=== PATIENT | female | born 1990 | race Caucasian/White ===

== ENCOUNTER 2016-06-24 08:40 | Emergency (ER) | payer OTHER ==
[~2016-06-24] VITALS: Ht 167.6 cm; Wt 75.1 kg
[~2016-06-24 08:40] MED LIST: ACET-1256 PO; AMT25 PO; EFF/375 PO; HYDR50CA2 PO; TRAM-10 PO; TRAZ100T29 PO
[2016-06-24 08:42] VITALS: TEMP 36.8; Ht 167.6 cm; Wt 75.1 kg
[2016-06-24] MEDS ORDERED: CYCLOBENZAPRINE HCL 5 MG TAB PO STA (09:01)
[2016-06-24] MEDS ORDERED: OXYCODONE HCL IR 5 MG TAB (IMMEDIATE RELEASE) PO STA (09:01)
[2016-06-24] MEDS ORDERED: CYCLOBENZAPRINE HCL 10 MG TAB ONE (09:20)
[2016-06-24 09:46] LABS: BASO % 0.6 %; BASO ABS # 0.04 K/uL (0-0.2); COMPLETE YES; EOS % 2.1 %; HEMATOCRIT 43.8 % (37-47); IG% 0.2 %; LYMPH % 38.9 %; MEAN CELL VOLUME 87.3 fL (80-100); MEAN CORPUSCULAR HEMOGLOBIN 29.5 pg (25-34); MEAN CORPUSCULAR HGB CONC 33.8 g/dl (32-36); MONO % 7.5 %; NEUT % 50.7 %; PLATELET COUNT 219 K/uL (130-400); RED BLOOD COUNT 5.02 M/uL (4.2-5.4); WHITE BLOOD COUNT 6.17 K/uL (4.8-10.8)
--- NOTE | 2016-06-24 10:01 | DIAGNOSTIC IMAGING REPORT ---
KUB CLINICAL HISTORY: Left flank pain. COMPARISON STUDY: CT of the abdomen and pelvis January 04, 2016. FINDINGS: There are cholecystectomy clips. A 4 mm left pelvic calcification was shown to represent a phlebolith on prior CT. Bowel gas pattern is normal. Rib series will be reported separately. No renal calculi are identified by radiography. IMPRESSION: 1. No evidence for a bowel obstruction. 2. No urinary calculi identified. Electronically signed by: Brayan Hernandez M.D. 06/24/2016 10:00 AM Dictated Date/Time: 06/24/2016 9:58 AM
--- NOTE | 2016-06-24 10:01 | DIAGNOSTIC IMAGING REPORT ---
PA CHEST WITH LEFT-SIDED RIB SERIES CLINICAL HISTORY: Left-sided chest wall pain. No trauma. FINDINGS: A PA chest radiograph with 3 additional views from a left-sided rib series is compared to study dated 05/16/2016. The cardiomediastinal silhouette is unremarkable. The lungs and pleural spaces are clear. No pneumothorax is seen. There is no radiographic evidence of acute/distracted left-sided rib fracture on the rib series. The remainder of the bony thorax is grossly intact. Cholecystectomy clips are seen in the right upper quadrant. IMPRESSION: 1. No active disease in the chest. 2. Unremarkable left-sided rib series. Electronically signed by: Armando Hemphill M.D. 06/24/2016 9:59 AM Dictated Date/Time: 06/24/2016 9:57 AM
[2016-06-24 10:03] LABS: BUN/CREATININE RATIO 10.9 (10-20); CREATININE 0.84 mg/dl (0.60-1.20); POTASSIUM 3.9 mmol/L (3.5-5.1)
[2016-06-24 10:08] LABS: ALB/GLOB RATIO 1.3 (0.9-2); CKMB/CK RATIO 0.9 (0-3.0)
[2016-06-24 10:14] LABS: URINE APPEARANCE CLEAR (CLEAR); URINE BILIRUBIN NEG (NEG); URINE COLOR YELLOW; URINE NITRITE NEG (NEG); URINE PH 6.5 (4.5-7.5); URINE SPECIFIC GRAVITY 1.008 (1.000-1.030); UROBILINOGEN NEG (NEG); ZZUR CULT IF INDIC CLEAN CATCH NO
[2016-06-24 10:15] LABS: MANUAL MICROSCOPIC REQUIRED? NO; REVIEW REQ? NO
[2016-06-24] MEDS ORDERED: OXYC1TAB3 PO (11:05)
--- NOTE | 2016-06-24 11:07 | EMERGENCY ROOM VISIT NOTE ---
History First contact with patient: 08:50 Chief Complaint: BACK PAIN Stated Complaint: PULLED BACK/SIDE MUSCLE History of Present Illness The patient is a 26 year old female who presents to the Emergency Room via private vehicle with complaints of "pulled back/side muscle". Patient states that about 4 days ago, on Thursday morning when she woke up she went to fruit or nut picker her small child out of the crib and then she noticed a pulling sensation in the left mid back. She took Tylenol Thursday and Thursday and felt the same through Thursday. She states she feels like a muscle in the left posterior rib cage is pulled and it hurts in that region to breathe and with twisting motion side to side. She denies any history of blood clots, recent leg swelling, chest pain, shortness of breath, fevers, chills, control, history of kidney stones. She does smoke. Pain is rated as an 8/10. No cauda equina symptoms. Review of Systems A complete 10-point Review of Systems was discussed with the patient, with pertinent positives and negatives listed in the History of Present Illness. All remaining Review of Systems questions can be considered negative unless otherwise specified. Past Medical/Surgical History Medical Problems: (1) Cholelithiasis Nos (2) Hypothyroidism Nos (3) PROM (premature rupture of membranes) Family History Cancer Social History Smoking Status: Current Every Day Smoker Alcohol Use: none Drug Use: none Marital Status: single Occupation Status: student Current/Historical Medications Scheduled Acetaminophen (Tylenol), 1,000 MG PO Q4H Amitriptyline HCl (Amitriptyline HCl), 25 MG PO DAILY Trazodone Hcl (Trazodone), 100 MG PO BID Scheduled PRN Oxycodone Ir (Roxicodone Ir), 1-2 TAB PO Q4H PRN for Pain Allergies Coded Allergies: Cephalexin (Unverified Allergy, Intermediate, VOMITING/DIARRHEA, 06/24/16) Physical Exam Vital Signs Date Time Temp Pulse Resp B/P Pulse Ox O2 Delivery O2 Flow Rate FiO2 06/24/16 11:30 84 15 115/66 99 06/24/16 10:31 84 16 97/64 98 Room Air 06/24/16 08:42 36.8 97 16 124/77 99 Room Air Physical Exam VITAL SIGNS - Vital signs and nursing notes were reviewed. Afebrile, normotensive, non-tachycardic and is saturating well on room air at 99%. GENERAL -26-year-old female appearing her stated age who is in no acute distress. Patient is nontoxic in appearance. Communicates well with provider and answers questions appropriately. SKIN - Without rashes. HEAD - NC/AT. EYES - Sclera anicteric. Palpebral conjunctiva pink and moist with no injection noted. EARS - No deformities of external structures noted on gross examination bilaterally. NOSE - Midline and without cyanosis. No epistaxis or purulent drainage noted. MOUTH/OROPHARYNX - Without perioral cyanosis. NECK - Neck with FROM. Supple to palpation. No lymphadenopathy noted. No nuchal rigidity. LUNGS - Chest wall symmetric without accessory muscle use, intercostals retractions, or central cyanosis. Normal vesicular breath sounds CTA B/L. No wheezes, rales, or rhonchi appreciated. CARDIAC - RRR with S1/S2. No murmur, rubs, or gallops appreciated. ABDOMEN - Abdominal contour no without pulsations or visible masses. BS normoactive all four quadrants. No tenderness, palpable masses, hepatosplenomegaly, or ascites noted. EXTREMITIES - No clubbing or peripheral cyanosis. No pretibial edema present. + 5/5 strength noted in UE/LE bilaterally. MUSCULOSKELETAL: There is increased discomfort with palpation of the left lateral thoracic paraspinous musculature. No CVA tenderness. NEUROLOGIC - Cranial nerves II through XII grossly intact. Sensory intact to light touch throughout. Patellar reflexes +2/4. PSYCH - A&Ox3 and cooperates fully with examiner. Medical Decision & Procedures ER Provider Diagnostic Interpretation: KUB CLINICAL HISTORY: Left flank pain. COMPARISON STUDY: CT of the abdomen and pelvis January 04, 2016. FINDINGS: There are cholecystectomy clips. A 4 mm left pelvic calcification was shown to represent a phlebolith on prior CT. Bowel gas pattern is normal. Rib series will be reported separately. No renal calculi are identified by radiography. IMPRESSION: 1. No evidence for a bowel obstruction. 2. No urinary calculi identified. Electronically signed by: Brayan Hernandez M.D. 06/24/2016 10:00 AM Dictated Date/Time: 06/24/2016 9:58 AM PA CHEST WITH LEFT-SIDED RIB SERIES CLINICAL HISTORY: Left-sided chest wall pain. No trauma. FINDINGS: A PA chest radiograph with 3 additional views from a left-sided rib series is compared to study dated 05/16/2016. The cardiomediastinal silhouette is unremarkable. The lungs and pleural spaces are clear. No pneumothorax is seen. There is no radiographic evidence of acute/distracted left-sided rib fracture on the rib series. The remainder of the bony thorax is grossly intact. Cholecystectomy clips are seen in the right upper quadrant. IMPRESSION: 1. No active disease in the chest. 2. Unremarkable left-sided rib series. Electronically signed by: Armando Hemphill M.D. 06/24/2016 9:59 AM Dictated Date/Time: 06/24/2016 9:57 AM Laboratory Results 06/24/16 09:20 Red Blood Count 5.02, Mean Corpuscular Volume 87.3, Mean Corpuscular Hemoglobin 29.5, Mean Corpuscular Hemoglobin Concent 33.8, Mean Platelet Volume 11.0, Neutrophils (%) (Auto) 50.7, Lymphocytes (%) (Auto) 38.9, Monocytes (%) (Auto) 7.5, Eosinophils (%) (Auto) 2.1, Basophils (%) (Auto) 0.6, Neutrophils # (Auto) 3.13, Lymphocytes # (Auto) 2.40, Monocytes # (Auto) 0.46, Eosinophils # (Auto) 0.13, Basophils # (Auto) 0.04 06/24/16 09:20 Test 06/24/16 09:20 06/24/16 10:00 White Blood Count 6.17 K/uL (4.8-10.8) Red Blood Count 5.02 M/uL (4.2-5.4) Hemoglobin 14.8 g/dL (12.0-16.0) Hematocrit 43.8 % (37-47) Mean Corpuscular Volume 87.3 fL (80-100) Mean Corpuscular Hemoglobin 29.5 pg (25-34) Mean Corpuscular Hemoglobin Concent 33.8 g/dl (32-36) Platelet Count 219 K/uL (130-400) Mean Platelet Volume 11.0 fL (7.4-10.4) Neutrophils (%) (Auto) 50.7 % Lymphocytes (%) (Auto) 38.9 % Monocytes (%) (Auto) 7.5 % Eosinophils (%) (Auto) 2.1 % Basophils (%) (Auto) 0.6 % Neutrophils # (Auto) 3.13 K/uL (1.4-6.5) Lymphocytes # (Auto) 2.40 K/uL (1.2-3.4) Monocytes # (Auto) 0.46 K/uL (0.11-0.59) Eosinophils # (Auto) 0.13 K/uL (0-0.5) Basophils # (Auto) 0.04 K/uL (0-0.2) RDW Standard Deviation 40.4 fL (36.4-46.3) RDW Coefficient of Variation 12.6 % (11.5-14.5) Immature Granulocyte % (Auto) 0.2 % Immature Granulocyte # (Auto) 0.01 K/uL (0.00-0.02) Anion Gap 7.0 mmol/L (3-11) Est Creatinine Clear Calc Drug Dose 106.0 ml/min Estimated GFR () 112.0 Estimated GFR (Non- 96.6 BUN/Creatinine Ratio 10.9 (10-20) Calcium Level 9.0 mg/dl (8.5-10.1) Total Bilirubin 0.2 mg/dl (0.2-1) Aspartate Amino Transf (AST/SGOT) 8 U/L (15-37) Alanine Aminotransferase (ALT/SGPT) 18 U/L (12-78) Alkaline Phosphatase 71 U/L (45-117) Total Creatine Kinase 68 U/L (26-192) Creatine Kinase MB 0.6 ng/ml (0.5-3.6) Creatine Kinase MB Ratio 0.9 (0-3.0) Total Protein 7.4 gm/dl (6.4-8.2) Albumin 4.2 gm/dl (3.4-5.0) Globulin 3.2 gm/dl (2.5-4.0) Albumin/Globulin Ratio 1.3 (0.9-2) Urine Color YELLOW Urine Appearance CLEAR (CLEAR) Urine pH 6.5 (4.5-7.5) Urine Specific [place] 1.008 (1.000-1.030) Urine Protein NEG (NEG) Urine Glucose (UA) NEG (NEG) Urine Ketones NEG (NEG) Urine Occult Blood NEG (NEG) Urine Nitrite NEG (NEG) Urine Bilirubin NEG (NEG) Urine Urobilinogen NEG (NEG) Urine Leukocyte Esterase NEG (NEG) Urine Test NEG (NEG) Medications Administered Medications (Trade) Dose Ordered Sig/Robert Route Start Time Stop Time Status Last Admin Dose Admin Oxycodone HCl (Roxicodone Immediate Rel Tab) 5 mg NOW STAT PO 06/24/16 09:01 06/24/16 09:05 DC 06/24/16 09:25 5 MG Cyclobenzaprine HCl (Flexeril Tab) 10 mg STK-MED ONCE .ROUTE 06/24/16 09:20 06/24/16 09:22 DC 06/24/16 09:26 5 MG Medical Decision Patient was seen and evaluated as above. After obtaining a thorough history and physical examination IV access was obtained and the above workup was completed. Radiographs were obtained of the kidneys, ureter and bladder as well as a rib unilateral with PA chest. Patient had a CTA of the chest performed just over 1 month ago for pulmonary embolism suspicion, a CT of the abdomen and pelvis was performed in December of this past year. She is presenting with near reproducible pain in the left paraspinous musculature that is worse with movement. She is not tachycardic and is saturating well on room air. Only risk factor for PE is smoking. Because she had a CT of the chest performed to evaluate for PE just over 1 month ago for chest pain or shortness of breath which she is not experiencing today and a negative result I do not feel that the benefit of obtaining this outweighs the risk of radiation and this was thoroughly discussed with the patient and it was decided to not obtain a CT scan of the chest. Results of the radiograph as above. Negative findings. The other concern was for potential stone but in the absence of finding on previous CT that was performed in December, and negative radiograph today as well as negative urine I do not feel that this is likely. She is most likely experiencing a lumbar strain. CBC reveals no leukocytosis or anemia. Electrolytes are within normal limits. No evidence of rhabdomyolysis as CPK is normal. AST is slightly low at 8. Urine was unremarkable. Urine negative. Patient was offered additional testing but it was decided to forego the CT of the abdomen and pelvis and chest. For pain here she was given 1 OxyIR tablet and one Flexeril tablet. I do find it reasonable to prescribe her a short-term prescription for home of the OxyIR. I do not feel comfortable prescribing her the Flexeril with her other chronic medications. She is to follow-up with her family doctor regarding today's visit and return for any worsening of her symptoms. She was educated upon today's findings and management. She had questions answered prior to discharge and was discharged home in good condition. In evaluation treatment of this patient the following differential diagnoses were entertained: Lumbar strain, sprain, fracture, kidney stone, pyelonephritis , pulmonary embolism, among others. [place] Drug Monitoring Program Search Results: patient reviewed within database, no issues identified Impression Primary Impression: Back strain Departure Information Dispostion Home / Self-Care Condition GOOD Prescriptions Oxycodone Ir (Roxicodone Ir) 5 Mg Tab 1-2 TAB PO Q4H Y for Pain, #15 TAB For Initial Treatment Prov: Matthew Gill PA-C 06/24/16 Referrals Funmi Odonnell M.D. (PCP) Patient Instructions My [facility] Additional Instructions You have been treated in the Emergency Department for Back Pain. You have received pain medicine in the emergency department which impairs your ability to operate a vehicle. It is illegal for you to drive after receiving these medicines. You have been prescribed Oxy IR to be used for pain control. This is a narcotic medication. You cannot drive or consume alcohol while on this medicine. This medicine should only be used for pain that cannot be controlled with over-the- counter pain medicines. As we discussed, at this time we decided not to obtain a CT scan of your chest, abdomen or pelvis. Please return with any worsening of your symptoms. For pain control, you can use the following [id number] medicines (if >12 yo): - Regular strength (325mg/tab) Tylenol (acetaminophen) 2 tabs every 4-6 hours as needed. Do not exceed 12 tablets in a 24 hour period. Avoid taking more than 4 grams (4000 mg) of Tylenol per day. This includes any other sources of acetaminophen you may take on a regular basis. - Regular strength (200 mg/tab) Advil (ibuprofen) 1-2 tabs every 4-6 hours as needed. Do not exceed a dose of 3200 mg per day. If this is an acute injury, ice can be applied to the area of pain for the first 3 days to help decrease pain and inflammation. After the first 3 days, a heating pad can be used over the area for continued soothing relief. You should schedule a follow-up appointment in 2-3 days with your Primary Care Provider for further evaluation and treatment of your back pain. Return to the Emergency Department if your current symptoms worsen despite treatment course outlined above, or if you develop any of the following symptoms : intractable pain despite aforementioned treatment course, loss of control of your bowel or bladder, numbness or tingling in your groin, or development of a fever. Please return to the emergency department with any new/concerning symptoms. Problem Qualifiers Primary Impression: Back strain Encounter type: initial encounter Qualified Codes: S39.012A - Strain of muscle, fascia and tendon of lower back, initial encounter
[2016-06-24 11:30] VITALS: BP 115/66; PULSE 84; O2SAT 99
== END 2016-06-24 11:32 | disposition home or self-care (01) ==
LOC: C.EDB 08:41
DX: S39.012A Strain of muscle, fascia and tendon of lower back, initial encounter (principal); X58.XXXA Exposure to other specified factors, initial encounter; E03.9 Hypothyroidism, unspecified; F17.200 Nicotine dependence, unspecified, uncomplicated; Z79.899 Other long term (current) drug therapy; Z80.9 Family history of malignant neoplasm, unspecified; Z88.8 Allergy status to other drugs, medicaments and biological substances

== ENCOUNTER 2016-09-28 15:52 | Emergency (ER) | payer OTHER ==
[~2016-09-28] VITALS: Ht 167.6 cm; Wt 69.4 kg
[~2016-09-28 15:52] MED LIST changes: -EFF/375 PO; -HYDR50CA2 PO; +OXYC1TAB3 PO; -TRAM-10 PO
[2016-09-28 15:57] VITALS: Ht 167.6 cm; Wt 69.4 kg
[2016-09-28] MEDS ORDERED: KETOROLAC TROMETHAMINE 30 MG/ML VIAL IV STA (16:35)
[2016-09-28] MEDS ORDERED: LORAZEPAM 2 MG/ML 1 ML VIAL IV STA (16:35)
--- NOTE | 2016-09-28 16:40 | EMERGENCY ROOM VISIT NOTE ---
History Report prepared by Abdullahi: Khadra Trujillo Under the Supervision of: Swetha Jean.O. First contact with patient: 16:01 Chief Complaint: SHORTNESS OF BREATH Stated Complaint: SOB,HEART BEATING HARD,NAUSEA,DIZZY Nursing Triage Summary: Pt became short of breath about 3 hours ago. Pt stated that yesterday she was having heart palpitations all day and this scared her. Pt stated she had a sudden onset of SOB and that her hands and feet feel numb. Pt said that she does have a history of anxiety. History of Present Illness The patient is a 26 year old female who presents to the Emergency Room with complaints of intermittent heart palpitations for the past two days. She states that she has had palpitations in the past, but over the past two days she has been having more than usual. Over the past 3 hours her symptoms have worsened. She has started feeling short of breath and reports chest tightness. The patient is also experiencing nausea, fatigue, and tingling in her hands, face, and legs. She denies any modifying factors. She has not been sleeping much the past two days. The patient denies vomiting, abdominal pain, diarrhea, hematochezia, melena, urinary symptoms, cough, fevers, and recent illness. She also denies any recent travel, increased stress, and any chance of . No significant cardiac history or history of thyroid problems. She does smoke every day. The patient rates her current pain as a 4/10. Source of History: patient Onset: 2 days ago Position: chest Symptom Intensity: 4/10 Quality: other (palpitations) Timing: intermittent Modifying Factors (Worsening): other (pt denies) Modifying Factors (Relieving): other (pt denies) Associated Symptoms: + SOB, + chest pain (tightness), + fatigue, + nausea, No abdominal pain, No cough, No diarrhea, No fevers, No hematochezia, No melena , No urinary symptoms, No vomiting Note: Pt notes tingling in her hands, face, and legs. Review of Systems See HPI for pertinent positives & negatives. A total of 10 systems reviewed and were otherwise negative. Past Medical & Surgical Medical Problems: (1) Cholelithiasis Nos (2) Hypothyroidism Nos (3) PROM (premature rupture of membranes) Family History Cancer Social History Smoking Status: Current Every Day Smoker Alcohol Use: none Drug Use: none Marital Status: single Occupation Status: student Current/Historical Medications Scheduled Buprenorphine Hcl-Naloxone Hcl (Suboxone 8-2 Mg), 0.25 TAB SL DAILY Lorazepam (Ativan), 0.5 MG PO Q6H Scheduled PRN Trazodone Hcl (Trazodone), 100 MG PO for Pain Allergies Coded Allergies: Cephalexin (Unverified Allergy, Intermediate, VOMITING/DIARRHEA, 09/28/16) Physical Exam Vital Signs Date Time Temp Pulse Resp B/P Pulse Ox O2 Delivery O2 Flow Rate FiO2 09/28/16 20:34 36.5 104 15 136/78 100 09/28/16 19:00 136/78 09/28/16 18:52 104 15 09/28/16 18:31 129/74 09/28/16 18:22 88 21 09/28/16 18:18 67 16 130/77 09/28/16 18:16 130/77 09/28/16 17:52 99 19 100 09/28/16 17:22 87 17 100 09/28/16 16:52 110 29 09/28/16 16:52 91 09/28/16 16:12 100 Room Air 09/28/16 15:57 36.5 98 20 136/81 100 Room Air Physical Exam GENERAL: alert, very anxious appearing, well nourished, tearful, non-toxic EYE EXAM: normal conjunctiva, PERRL and EOM's grossly intact OROPHARYNX: no exudate, no erythema, lips, buccal mucosa, and tongue normal and mucous membranes are moist NECK: supple, no nuchal rigidity, no adenopathy, non-tender LUNGS: Clear to auscultation. Normal chest wall mechanics HEART: Tachycardic but regular, no murmurs, S1 normal and S2 normal ABDOMEN: abdomen soft, non-tender, normo-active bowel sounds, no masses, no rebound or guarding. BACK: Back is symmetrical on inspection and there is no deformity, no midline tenderness, no CVA tenderness. SKIN: no rashes and no bruising UPPER EXTREMITIES: upper extremities are grossly normal. LOWER EXTREMITIES: No pitting edema. NEURO EXAM: Normal sensorium, cranial nerves II-XII grossly intact, normal speech, no gross weakness of arms, no gross weakness of legs. Medical Decision & Procedures ER Provider Diagnostic Interpretation: Radiology results have been interpreted by the radiologist and reviewed by me. CHEST 2 VIEWS ROUTINE HISTORY: Short of breath. COMPARISON: Chest 05/16/2016. FINDINGS: The lungs are clear. Cardiac silhouette is normal in size. No pleural effusions. No pneumothorax. IMPRESSION: No acute process. Electronically signed by: Sulaiman Martinez M.D. 09/28/2016 5:19 PM Dictated Date/Time: 09/28/2016 5:18 PM CHEST CTA for PULMONARY ARTERIES CT DOSE: 241.78 mGy.cm HISTORY: Short of breath. Elevated d-dimer. TECHNIQUE: Multiaxial CT images of the chest were performed following the intravenous administration of contrast to evaluate the pulmonary arteries. Maximal intensity projection images were also obtained. COMPARISON STUDY: Chest CTA 05/16/2016. FINDINGS: There is a normal caliber thoracic aorta with no evidence for dissection. There is no evidence for pulmonary embolus. No pleural effusions. No pneumothorax. The liver and spleen are unremarkable. No mediastinal or hilar lymphadenopathy. The central airways are patent. The lungs are clear. Cholecystectomy. IMPRESSION: No evidence for pulmonary embolus. Electronically signed by: Sulaiman Martinez M.D. 09/28/2016 7:46 PM Dictated Date/Time: 09/28/2016 7:41 PM Laboratory Results 09/28/16 16:50 Red Blood Count 4.92, Mean Corpuscular Volume 82.9, Mean Corpuscular Hemoglobin 29.9, Mean Corpuscular Hemoglobin Concent 36.0, Mean Platelet Volume 10.6, Neutrophils (%) (Auto) 56.2, Lymphocytes (%) (Auto) 37.2, Monocytes (%) (Auto) 4.8, Eosinophils (%) (Auto) 1.3, Basophils (%) (Auto) 0.3, Neutrophils # (Auto) 3.36, Lymphocytes # (Auto) 2.23, Monocytes # (Auto) 0.29, Eosinophils # (Auto) 0.08, Basophils # (Auto) 0.02 09/28/16 16:50 Test 09/28/16 16:50 White Blood Count 5.99 K/uL (4.8-10.8) Red Blood Count 4.92 M/uL (4.2-5.4) Hemoglobin 14.7 g/dL (12.0-16.0) Hematocrit 40.8 % (37-47) Mean Corpuscular Volume 82.9 fL (80-100) Mean Corpuscular Hemoglobin 29.9 pg (25-34) Mean Corpuscular Hemoglobin Concent 36.0 g/dl (32-36) Platelet Count 259 K/uL (130-400) Mean Platelet Volume 10.6 fL (7.4-10.4) Neutrophils (%) (Auto) 56.2 % Lymphocytes (%) (Auto) 37.2 % Monocytes (%) (Auto) 4.8 % Eosinophils (%) (Auto) 1.3 % Basophils (%) (Auto) 0.3 % Neutrophils # (Auto) 3.36 K/uL (1.4-6.5) Lymphocytes # (Auto) 2.23 K/uL (1.2-3.4) Monocytes # (Auto) 0.29 K/uL (0.11-0.59) Eosinophils # (Auto) 0.08 K/uL (0-0.5) Basophils # (Auto) 0.02 K/uL (0-0.2) RDW Standard Deviation 36.3 fL (36.4-46.3) RDW Coefficient of Variation 12.0 % (11.5-14.5) Immature Granulocyte % (Auto) 0.2 % Immature Granulocyte # (Auto) 0.01 K/uL (0.00-0.02) D-Dimer 990 ug/L FEU (0-500) Anion Gap 10.0 mmol/L (3-11) Est Creatinine Clear Calc Drug Dose 80.5 ml/min Estimated GFR () 90.7 Estimated GFR (Non- 78.2 BUN/Creatinine Ratio 13.2 (10-20) Calcium Level 9.7 mg/dl (8.5-10.1) Magnesium Level 2.2 mg/dl (1.8-2.4) Total Bilirubin 0.4 mg/dl (0.2-1) Aspartate Amino Transf (AST/SGOT) 9 U/L (15-37) Alanine Aminotransferase (ALT/SGPT) 16 U/L (12-78) Alkaline Phosphatase 76 U/L (45-117) Troponin I < 0.015 ng/ml (0-0.045) Total Protein 7.8 gm/dl (6.4-8.2) Albumin 4.5 gm/dl (3.4-5.0) Globulin 3.3 gm/dl (2.5-4.0) Albumin/Globulin Ratio 1.4 (0.9-2) Thyroid Stimulating Hormone (TSH) 0.946 uIu/ml (0.300-4.500) Laboratory results per my review. Medications Administered Medications (Trade) Dose Ordered Sig/Robert Route Start Time Stop Time Status Last Admin Dose Admin Lorazepam (Ativan Inj) 0.5 mg NOW STAT IV 09/28/16 16:35 09/28/16 16:38 DC 09/28/16 16:58 0.5 MG Ketorolac Tromethamine (Toradol Inj) 30 mg NOW STAT IV 09/28/16 16:35 09/28/16 16:38 DC 09/28/16 16:58 30 MG Cyclobenzaprine HCl (Flexeril Tab) 10 mg NOW STAT PO 09/28/16 17:51 09/28/16 17:52 DC 09/28/16 18:17 10 MG Acetaminophen (Tylenol Tab) 650 mg NOW STAT PO 09/28/16 17:51 09/28/16 17:52 DC 09/28/16 18:17 650 MG Albuterol (Ventolin Hfa Inhaler) 2 puffs NOW ONCE INH 09/28/16 18:00 09/28/16 18:01 DC 09/28/16 18:17 2 PUFFS ECG Indication: palpitations Rate (beats per minute): 108 Rhythm: sinus tachycardia Findings: T-wave inversion (in leads 3, AVF, V2, V3, V4), no ectopy, other (No evidence for Brugada; No evidence for WPW; No ST elevations; baseline artifact) ED Course 1601: The patient was evaluated in room C9. A complete history and physical exam was performed. 1635: Toradol 30 mg IV, Ativan 0.5 mg IV 1747: I updated the patient. She appears more comfortable but she was tearful with discussion of results and condition. 1751: Tylenol tab 650 mg PO, Flexeril 10 mg PO 1800: Albuterol 2 puffs INH 2015: I reassessed the patient at this time. She is feeling better and resting comfortably. I discussed the results and treatment plan with the patient. I answered all pertaining questions that she had. She expressed understanding and verbalized agreement. The patient will be discharged home. Medical Decision Differential diagnosis includes etiologies such as premature contractions, electrolyte abnormality, cardiac dysrhythmia, thyroid dysfunction, pulmonary embolism, infection, gastrointestinal, as well as others were entertained. Pt well appearing here and likely component of anxiety. Labs reassuring. Elevated d-dimer found after PE cannot be ruled out with perc criteria. CT scan of the chest negative. Patient. Much better here following medication, however still complained of pain. Given persistence of symptoms and negative troponin despite slightly abnormal EKG, doubt ACS. No evidence of tamponade, effusion, infiltrate, dissection, HOCM. EKG changes mild and not diffuse, no recent URI symptoms to suggest pericarditis. No dysrhythmias noted on telemetry during monitoring. No history of GERD/heartburn to suggest GI etiology. No history of ulnar pathology including asthma. Patient responded well to Ativan initially here, however was easily made anxious and tearful with discussion at bedside. Discussed with patient follow-up with her family doctor , symptoms to watch and return for, she verbalized understanding was agreeable with plan. Impression Primary Impression: Dyspnea Additional Impressions: Palpitations Chest pain Anxiety Scribe Attestation The scribe's documentation has been prepared under my direction and personally reviewed by me in its entirety. I confirm that the note above accurately reflects all work, treatment, procedures, and medical decision making performed by me. Departure Information Dispostion Home / Self-Care Referrals Funmi Odonnell M.D. (PCP) Forms HOME CARE DOCUMENTATION FORM, IMPORTANT VISIT INFORMATION Patient Instructions My [facility] Additional Instructions Please follow up with her family doctor regarding her symptoms. If you have any worsening pain, increased trouble breathing, develop fevers, vomiting, dizziness or passing out, you've any other new concerns, please return the emergency room. You may use the inhaler for any wheezing or trouble breathing as needed. Please do not use more than 2 puffs at time and use only up to every 4 hours. If you feel he needed use it more frequently, please return the emergency room. Problem Qualifiers Primary Impression: Dyspnea Dyspnea type: shortness of breath Qualified Codes: R06.02 - Shortness of breath Additional Impressions: Chest pain Chest pain type: unspecified Qualified Codes: R07.9 - Chest pain, unspecified
[2016-09-28] MEDS ORDERED: LORA-741 PO (16:45)
[2016-09-28] MEDS ORDERED: BUPR1SUB23 SL (16:45)
[2016-09-28 17:06] LABS: BASO % 0.3 %; BASO ABS # 0.02 K/uL (0-0.2); COMPLETE YES; EOS % 1.3 %; HEMATOCRIT 40.8 % (37-47); IG% 0.2 %; LYMPH % 37.2 %; LYMPH ABS # 2.23 K/uL (1.2-3.4); MEAN CELL VOLUME 82.9 fL (80-100); MEAN CORPUSCULAR HEMOGLOBIN 29.9 pg (25-34); MEAN PLATELET VOLUME 10.6 fL (7.4-10.4); MONO % 4.8 %; NEUT % 56.2 %; PLATELET COUNT 259 K/uL (130-400); RED BLOOD COUNT 4.92 M/uL (4.2-5.4); WHITE BLOOD COUNT 5.99 K/uL (4.8-10.8)
--- NOTE | 2016-09-28 17:21 | DIAGNOSTIC IMAGING REPORT ---
CHEST 2 VIEWS ROUTINE HISTORY: Short of breath. COMPARISON: Chest 05/16/2016. FINDINGS: The lungs are clear. Cardiac silhouette is normal in size. No pleural effusions. No pneumothorax. IMPRESSION: No acute process. Electronically signed by: Sulaiman Martinez M.D. 09/28/2016 5:19 PM Dictated Date/Time: 09/28/2016 5:18 PM
[2016-09-28 17:25] LABS: ALT/SGPT 16 U/L (12-78); AST/SGOT 9 U/L (15-37); BLOOD UREA NITROGEN 13 mg/dl (7-18); BUN/CREATININE RATIO 13.2 (10-20); CALCIUM 9.7 mg/dl (8.5-10.1); CARBON DIOXIDE 21 mmol/L (21-32); CHLORIDE 111 mmol/L (98-107); GLUCOSE 100 mg/dl (70-99); MAGNESIUM 2.2 mg/dl (1.8-2.4); POTASSIUM 3.6 mmol/L (3.5-5.1); SODIUM 142 mmol/L (136-145)
[2016-09-28 17:36] LABS: ALB/GLOB RATIO 1.4 (0.9-2); ALKALINE PHOSPHATASE 76 U/L (45-117); THYROID STIMULATING HORMONE 0.946 uIu/ml (0.300-4.500)
[2016-09-28] MEDS ORDERED: CYCLOBENZAPRINE HCL 10 MG TAB PO STA (17:51)
[2016-09-28] MEDS ORDERED: ACETAMINOPHEN 325 MG TAB PO STA (17:51)
[2016-09-28] MEDS ORDERED: ALBUTEROL HFA 8 GM INHALER INH ONE (18:00)
[2016-09-28] MEDS ORDERED: OPTIRAY 320 IV PRN (19:00)
--- NOTE | 2016-09-28 19:48 | DIAGNOSTIC IMAGING REPORT ---
CHEST CTA for PULMONARY ARTERIES CT DOSE: 241.78 mGy.cm HISTORY: Short of breath. Elevated d-dimer. TECHNIQUE: Multiaxial CT images of the chest were performed following the intravenous administration of contrast to evaluate the pulmonary arteries. Maximal intensity projection images were also obtained. COMPARISON STUDY: Chest CTA 05/16/2016. FINDINGS: There is a normal caliber thoracic aorta with no evidence for dissection. There is no evidence for pulmonary embolus. No pleural effusions. No pneumothorax. The liver and spleen are unremarkable. No mediastinal or hilar lymphadenopathy. The central airways are patent. The lungs are clear. Cholecystectomy. IMPRESSION: No evidence for pulmonary embolus. Electronically signed by: Sulaiman Martinez M.D. 09/28/2016 7:46 PM Dictated Date/Time: 09/28/2016 7:41 PM
[2016-09-28 20:34] VITALS: BP 136/78; PULSE 104; TEMP 36.5; O2SAT 100
== END 2016-09-28 20:35 | disposition home or self-care (01) ==
LOC: C.EDB 15:53 → C.EDC 20:35
DX: R06.00 Dyspnea, unspecified (principal); R00.2 Palpitations; R07.9 Chest pain, unspecified; F41.9 Anxiety disorder, unspecified; E03.9 Hypothyroidism, unspecified; K80.20 Calculus of gallbladder without cholecystitis without obstruction; F17.200 Nicotine dependence, unspecified, uncomplicated; Z79.899 Other long term (current) drug therapy; Z80.9 Family history of malignant neoplasm, unspecified; Z88.8 Allergy status to other drugs, medicaments and biological substances

== ENCOUNTER 2016-11-24 09:03 | Emergency (ER) | payer OTHER ==
[~2016-11-24] VITALS: Ht 165.1 cm; Wt 67.6 kg
[~2016-11-24 09:03] MED LIST changes: -ACET-1256 PO; -AMT25 PO; +BUPR1SUB23 SL; +LORA-741 PO; -OXYC1TAB3 PO
[2016-11-24 09:06] VITALS: TEMP 37; Ht 165.1 cm; Wt 67.6 kg
[2016-11-24] MEDS ORDERED: SODIUM CHLORIDE 0.9% 1000ML 1,000 ML IV STA (09:25)
--- NOTE | 2016-11-24 09:37 | EMERGENCY ROOM VISIT NOTE ---
History First contact with patient: 09:15 Chief Complaint: SORETHROAT Stated Complaint: SORE THROAT FOR 26 DAYS,FATIGUE History of Present Illness The patient is a 26 year old female who presents to the Emergency Room with complaints of sore throat. The patient states that she has had a sore throat for the last 3 weeks. She states it started with sore throat and she had bilateral eye discharge. She saw her family doctor and was started on eyedrops and the eye discharge improved but the sore throat persisted. She saw her family doctor 3 days ago and was diagnosed with a viral sore throat. She states that the sore throat has significantly worsened. She reports intermittent low-grade fevers. She reports pain with swallowing. She states she is feeling very fatigued. She denies any chest pain or trouble breathing. She denies any urinary symptoms. She denies any abdominal pain or vomiting. Review of Systems A 10 system review of systems was completed with positives and pertinent negatives listed in the HPI. Past Medical/Surgical History Medical Problems: (1) Cholelithiasis Nos (2) Hypothyroidism Nos (3) PROM (premature rupture of membranes) Family History Cancer Social History Smoking Status: Current Every Day Smoker Alcohol Use: none Drug Use: none Marital Status: single Occupation Status: student Current/Historical Medications Scheduled Prednisone (Prednisone), 0 PO DAILY Scheduled PRN Trazodone Hcl (Trazodone), 100 MG PO HS PRN for Sleep Allergies Coded Allergies: Cephalexin (Unverified Allergy, Intermediate, VOMITING/DIARRHEA, 11/24/16) Physical Exam Vital Signs Date Time Temp Pulse Resp B/P (MAP) Pulse Ox O2 Delivery O2 Flow Rate FiO2 11/24/16 11:37 67 17 106/79 98 11/24/16 10:34 65 16 94/48 97 Room Air 11/24/16 09:18 98 Room Air 11/24/16 09:06 37.0 100 20 114/81 96 Room Air Physical Exam VITALS: Vitals are noted on the nurse's note and reviewed by myself. Vital signs stable. The patient is afebrile. GENERAL: This is a 26-year-old female, in no acute distress, nondiaphoretic, well-developed well-nourished. SKIN: The skin was without rashes, erythema, edema, or bruising. There is no tenting of the skin. Capillary reflex less than 2 seconds. HEAD: Normocephalic atraumatic. EARS: External auditory canals clear, tympanic membranes pearly mcguire without erythema or effusion bilaterally. EYES: Pupils equal round and reactive to light and accommodation. Conjunctivae without injection, sclerae without icterus. Extraocular movements intact. NOSE: Patent, turbinates without inflammation or discharge. MOUTH: Mucous membranes moist. Tonsils are not enlarged. Pharynx minimally erythematous without exudate. Uvula midline. Airway patent. Tongue does not deviate. NECK: Supple without nuchal rigidity. No lymphadenopathy. No thyromegaly. Cervical spine is nontender. No JVD. HEART: Regular rate and rhythm without murmurs gallops or rubs. LUNGS: Clear to auscultation bilaterally without wheezes, rales or rhonchi. No retractions or accessory muscle use. ABDOMEN: Positive bowel sounds x 4. Soft, nontender, without masses or organomegaly. MUSCULOSKELETAL: No muscle atrophy, erythema, or edema noted. Full range of motion in all extremities. Normal gait. Strength 5/5 throughout. NEURO: Patient was alert and oriented to person place and time. No focal neurological deficits. Medical Decision & Procedures Laboratory Results 11/24/16 09:50 Red Blood Count 4.75, Mean Corpuscular Volume 85.1, Mean Corpuscular Hemoglobin 28.6, Mean Corpuscular Hemoglobin Concent 33.7, Mean Platelet Volume 10.3, Neutrophils (%) (Auto) 66.4, Lymphocytes (%) (Auto) 25.3, Monocytes (%) (Auto) 5.1, Eosinophils (%) (Auto) 2.7, Basophils (%) (Auto) 0.3, Neutrophils # (Auto) 4.26, Lymphocytes # (Auto) 1.62, Monocytes # (Auto) 0.33, Eosinophils # (Auto) 0.17, Basophils # (Auto) 0.02 11/24/16 09:50 Test 11/24/16 09:50 11/24/16 11:00 White Blood Count 6.41 K/uL (4.8-10.8) Red Blood Count 4.75 M/uL (4.2-5.4) Hemoglobin 13.6 g/dL (12.0-16.0) Hematocrit 40.4 % (37-47) Mean Corpuscular Volume 85.1 fL (80-100) Mean Corpuscular Hemoglobin 28.6 pg (25-34) Mean Corpuscular Hemoglobin Concent 33.7 g/dl (32-36) Platelet Count 240 K/uL (130-400) Mean Platelet Volume 10.3 fL (7.4-10.4) Neutrophils (%) (Auto) 66.4 % Lymphocytes (%) (Auto) 25.3 % Monocytes (%) (Auto) 5.1 % Eosinophils (%) (Auto) 2.7 % Basophils (%) (Auto) 0.3 % Neutrophils # (Auto) 4.26 K/uL (1.4-6.5) Lymphocytes # (Auto) 1.62 K/uL (1.2-3.4) Monocytes # (Auto) 0.33 K/uL (0.11-0.59) Eosinophils # (Auto) 0.17 K/uL (0-0.5) Basophils # (Auto) 0.02 K/uL (0-0.2) RDW Standard Deviation 37.8 fL (36.4-46.3) RDW Coefficient of Variation 12.2 % (11.5-14.5) Immature Granulocyte % (Auto) 0.2 % Immature Granulocyte # (Auto) 0.01 K/uL (0.00-0.02) Anion Gap 8.0 mmol/L (3-11) Est Creatinine Clear Calc Drug Dose 92.1 ml/min Estimated GFR () 112.0 Estimated GFR (Non- 96.6 BUN/Creatinine Ratio 13.5 (10-20) Calcium Level 9.4 mg/dl (8.5-10.1) Total Bilirubin 0.3 mg/dl (0.2-1) Aspartate Amino Transf (AST/SGOT) 12 U/L (15-37) Alanine Aminotransferase (ALT/SGPT) 20 U/L (12-78) Alkaline Phosphatase 76 U/L (45-117) Total Protein 7.0 gm/dl (6.4-8.2) Albumin 3.8 gm/dl (3.4-5.0) Globulin 3.2 gm/dl (2.5-4.0) Albumin/Globulin Ratio 1.2 (0.9-2) Monoscreen POS (NEG) Urine Color YELLOW Urine Appearance CLEAR (CLEAR) Urine pH 5.5 (4.5-7.5) Urine Specific [place] 1.021 (1.000-1.030) Urine Protein NEG (NEG) Urine Glucose (UA) NEG (NEG) Urine Ketones NEG (NEG) Urine Occult Blood NEG (NEG) Urine Nitrite NEG (NEG) Urine Bilirubin NEG (NEG) Urine Urobilinogen NEG (NEG) Urine Leukocyte Esterase NEG (NEG) Urine Test NEG (NEG) Medications Administered Medications (Trade) Dose Ordered Sig/Robert Route Start Time Stop Time Status Last Admin Dose Admin Sodium Chloride 1,000 ml @ 999 mls/hr Q1H1M STAT IV 11/24/16 09:25 11/24/16 10:25 DC 11/24/16 09:25 999 MLS/HR ED Course The patient was seen and examined. Previous visits were reviewed. The patient has had a persistent sore throat for 3 weeks. The patient is afebrile and nontoxic in appearance. She does not have a leukocytosis. She does not have any significant electrolyte abnormality. Urinalysis is negative. Rapid strep is negative. Monospot is positive. The patient was hydrated with normal saline I had ordered Decadron but upon review, she was never given the medication The patient will be given a prescription for prednisone. She will be given a note for work. She should follow-up with her family doctor at the end of the week for recheck. She was advised no vigorous activity or contact sports due to possible splenomegaly. She return to the ER with any worsening symptoms. The case was discussed with Dr. horan who agrees with the assessment and plan. Medical Decision The differential diagnosis includes strep pharyngitis, mononucleosis, dehydration, electrolyte abnormality, among others Impression Primary Impression: Mononucleosis Departure Information Dispostion Home / Self-Care Condition GOOD Prescriptions Prednisone (Prednisone) 20 Mg Tab 0 PO DAILY, #18 TAB 3 DAILY FOR 3 DAYS, THEN 2 DAILY FOR 3 DAYS, THEN 1 DAILY FOR 3 DAYS. Prov: Keli Aquino PA-C 11/24/16 Referrals Funmi Odonnell M.D. (PCP) Patient Instructions ED Mononucleosis, My [facility] Additional Instructions Prednisone as prescribed Rest Avoid vigorous activity or contact sports Recheck with your family doctor next week Return with any worsening symptoms Work Instructions Return To Work: 5 days
[2016-11-24 10:02] LABS: BASO % 0.3 %; BASO ABS # 0.02 K/uL (0-0.2); COMPLETE YES; EOS % 2.7 %; HEMATOCRIT 40.4 % (37-47); IG% 0.2 %; LYMPH % 25.3 %; LYMPH ABS # 1.62 K/uL (1.2-3.4); MEAN CELL VOLUME 85.1 fL (80-100); MEAN CORPUSCULAR HEMOGLOBIN 28.6 pg (25-34); MEAN CORPUSCULAR HGB CONC 33.7 g/dl (32-36); MEAN PLATELET VOLUME 10.3 fL (7.4-10.4); MONO % 5.1 %; NEUT % 66.4 %; PLATELET COUNT 240 K/uL (130-400); RED BLOOD COUNT 4.75 M/uL (4.2-5.4); WHITE BLOOD COUNT 6.41 K/uL (4.8-10.8)
[2016-11-24 10:19] LABS: BUN/CREATININE RATIO 13.5 (10-20); CALCIUM 9.4 mg/dl (8.5-10.1); CREATININE 0.84 mg/dl (0.60-1.20); POTASSIUM 3.8 mmol/L (3.5-5.1)
[2016-11-24 10:22] LABS: ALB/GLOB RATIO 1.2 (0.9-2)
[2016-11-24] MEDS ORDERED: PRED20TA PO (11:19)
[2016-11-24] MEDS ORDERED: DEXAMETHASONE SOD INJ 10 MG/ML VIAL IV ONE (11:30)
[2016-11-24 11:37] VITALS: BP 106/79; PULSE 67; O2SAT 98
[2016-11-24 11:37] LABS: URINE APPEARANCE CLEAR (CLEAR); URINE BILIRUBIN NEG (NEG); URINE COLOR YELLOW; URINE NITRITE NEG (NEG); URINE PH 5.5 (4.5-7.5); URINE SPECIFIC GRAVITY 1.021 (1.000-1.030); UROBILINOGEN NEG (NEG); ZZUR CULT IF INDIC CLEAN CATCH NO
[2016-11-24 11:49] LABS: MANUAL MICROSCOPIC REQUIRED? NO; REVIEW REQ? NO
[2016-11-24 12:01] LABS: PREG INTERNAL NEGATIVE QC NEG CLEAR BACKGROUND; PREG INTERNAL POSITIVE QC POS CONTROL LINE
== END 2016-11-24 11:35 | disposition home or self-care (01) ==
LOC: C.EDB 09:05 → C.EDA 11:35
DX: B27.90 Infectious mononucleosis, unspecified without complication (principal); E03.9 Hypothyroidism, unspecified; F17.200 Nicotine dependence, unspecified, uncomplicated; Z88.8 Allergy status to other drugs, medicaments and biological substances

== ENCOUNTER 2017-07-06 14:43 | Emergency (ER) | payer OTHER ==
[~2017-07-06] VITALS: Ht 165.1 cm; Wt 66.0 kg
[~2017-07-06 14:43] MED LIST changes: -BUPR1SUB23 SL; -LORA-741 PO
[2017-07-06 14:47] VITALS: BP 126/81; PULSE 89; TEMP 36.7; O2SAT 99; Ht 165.1 cm; Wt 66.0 kg
[2017-07-06] MEDS ORDERED: CLON0.5T PO (15:22)
[2017-07-06] MEDS ORDERED: ZOLP10TA PO (15:22)
[2017-07-06] MEDS ORDERED: IBUPROFEN 600 MG TAB PO STA (15:32)
--- NOTE | 2017-07-06 16:11 | DIAGNOSTIC IMAGING REPORT ---
L-SPINE MIN 4 VIEWS ROUTINE HISTORY: Trauma. Pain. FALL, RIGHT BACK PAIN COMPARISON: None. FINDINGS: There is no fracture. No subluxation. Disc spaces are preserved. IMPRESSION: No fracture or subluxation within the lumbar spine. The above report was generated using voice recognition software. It may contain grammatical, syntax or spelling errors. Electronically signed by: Fab Sherwood M.D. 07/06/2017 4:10 PM Dictated Date/Time: 07/06/2017 4:08 PM
--- NOTE | 2017-07-06 16:27 | EMERGENCY ROOM VISIT NOTE ---
ED Visit Note First contact with patient: 14:52 CHIEF COMPLAINT: Low back pain after a fall 2 hours ago HISTORY OF PRESENT ILLNESS: Patient is an otherwise healthy 27-year-old female who presents the emergency department for evaluation of right mid and low back pain after a fall. She reports that about 2 hours ago she tripped going up wooden anterior steps, this caused her to fall down roughly 4 steps, striking and injuring her right mid to low back. She complains of pain in the right low back that radiates up along her spine to the mid thoracic region. There is no radiation of pain to her sacrum or coccyx, hips or legs. She did not strike her head or lose consciousness. 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 She states that the pain feels like a "burning" in her right low back , and rates it an 8/10. She feels nauseous with the increased pain. She did not try taking any medications, nor perform any interventions for her symptoms. She states the pain is worse with movements, better when she lays still. She denies any numbness or tingling or weakness into the lower extremities. No bowel or bladder incontinence. She denies any difficulty walking. She reports that she was able to drive herself to the emergency department. REVIEW OF SYSTEMS: Review of systems as per HPI. All other systems reviewed were negative. 10 systems reviewed. PMH: Electronic medical records are reviewed and summarized as above/below. See Problem List. SOCIAL HISTORY: Patient lives at home with her family. She is employed. PHYSICAL EXAM: Vital Signs: Reviewed Nurse's notes. CONSTITUTIONAL: Patient is an uncomfortable appearing 27-year-old white female who is awake and alert and in moderate distress due to her stated complaint. She is lying supine on the gurney . There is significant discomfort with position changes. NECK: No bruits auscultated. Supple without lymphadenopathy. No thyromegaly. No meningeal signs. Full active range of motion without discomfort. CARDIOVASCULAR: Regular rate and rhythm, with normal S1 and S2, no murmur or gallop or rub is heard. No carotid bruits auscultated. No JVD. Peripheral pulses easily palpable. RESPIRATORY: Breath sounds equal and clear to auscultation without wheezes, rales, or rhonchi heard. Full and equal chest expansion without accessory muscle use or retractions. ABDOMEN: Bowel sounds are present. Abdomen is soft, nontender and nondistended. INTEGUMENTARY: No lesions or rash, normal skin turgor. LYMPH: No lymphadenopathy. SPINE: Examination of the patient's back does not demonstrate any ecchymosis, abrasions or outward signs of trauma. No erythema, increased warmth or induration. Patient has no discomfort to palpation over the thoracic or the lumbar spinous processes. No pain over the SI joint or sciatic notches bilaterally. She has some right sided paraspinous muscular tenderness in the thoracic and lumbar region without spasm. She has increased pain with range of motion including rotation and flexion. EXTREMITIES: Leg lengths are symmetrical. Negative logroll bilaterally. Normal strength including dorsi-flexion and plantar flexion of the great toes and ankles and flexion and extension of the knees and flexion of the hips. Negative bilateral straight leg raise testing. Lower extremity DTRs are equal and symmetrical bilaterally. Distal pulses are easily palpable. Sensation light touch is intact over the lower extremities bilaterally. EMERGENCY DEPARTMENT COURSE: The patient was seen and assessed as above. She was medicated with ibuprofen for discomfort. Lumbar spine x-rays were obtained and were negative for acute fracture or bony abnormality. The patient has suffered a mechanical fall, with a right low back injury. Differential diagnoses entertained included compression fracture, transverse process fracture , muscle strain, ligamentous injury, among others. She does not have any physical exam findings to suspect acute cord compression or cauda equina syndrome. Supportive care measures were discussed. She was encouraged to apply heat to the area, perform gentle stretching and range of motion exercises , and use [id number] medication for discomfort. Follow-up with her PCP if her symptoms are not improving. Medication reconciliation: I attest that I have personally reviewed the patient' s current medication list. Blood pressure screening : Patient was found to have normal blood pressure on screening and does not require follow-up. L-SPINE MIN 4 VIEWS ROUTINE HISTORY: Trauma. Pain. FALL, RIGHT BACK PAIN COMPARISON: None. FINDINGS: There is no fracture. No subluxation. Disc spaces are preserved. IMPRESSION: No fracture or subluxation within the lumbar spine. Problem List Surgical Problems: (1) History of hysterectomy Status: Resolved (2) Hx of cholecystectomy Status: Resolved Current/Historical Medications Scheduled PRN Clonazepam (Klonopin), 0.5 MG PO TID PRN for Anxiety Zolpidem Tartrate (Ambien), 10 MG PO HS PRN for Sleep Allergies Coded Allergies: Cephalexin (Unverified Allergy, Intermediate, VOMITING/DIARRHEA, 11/24/16) Vital Signs Date Time Temp Pulse Resp B/P (MAP) Pulse Ox O2 Delivery O2 Flow Rate FiO2 07/06/17 14:47 36.7 89 16 126/81 99 Medications Administered Medications (Trade) Dose Ordered Sig/Robert Route Start Time Stop Time Status Last Admin Dose Admin Ibuprofen (Motrin Tab) 600 mg NOW STAT PO 07/06/17 15:32 07/06/17 15:33 DC 07/06/17 15:40 600 MG Departure Information Impression Primary Impression: Fall Additional Impression: Back contusion Referrals Funmi Odonnell M.D. (PCP) Patient Instructions My [facility] Additional Instructions Ibuprofen(Motrin, Advil) may be used for fever or pain. Use 600mg every six hours as needed. Take with food. Avoid using more than 2400mg in a 24 hour period. Do not use 2400mg per day for more than three consecutive days without physician direction. Prolonged inappropriate use can lead to stomach upset or ulcers. This medication can be taken if you need to drive, work, or perform activities which may be dangerous when taking narcotic pain medication. (AND/OR) Acetaminophen(Tylenol) may be used for fever or pain. Use 1000mg every six hours as needed. Avoid using more than 3000mg in a 24 hour period. This medication can be taken if you need to drive, work, or perform activities which may be dangerous when taking narcotic pain medication. Rest and avoid heavy lifting until your symptoms resolve and then gradually return to full activity. A good rule of thumb is if it hurts your back to perform a certain activity, then it should be avoided until you are healthy again. A heating pad, warm compresses, or a hot shower may help with tight muscles and can be done several times a day as needed. Continue current medications. Return to the ER immediately for any numbness, tingling, severe pain, loss of control of your bowels or bladder, inability to walk, or as needed. Follow up with your primary care physician within 3-5 days for a recheck of your current condition. Problem Qualifiers
== END 2017-07-06 16:36 | disposition home or self-care (01) ==
LOC: C.EDD 16:33
DX: S30.0XXA Contusion of lower back and pelvis, initial encounter (principal); W19.XXXA Unspecified fall, initial encounter

== ENCOUNTER 2017-12-25 15:27 | Emergency (ER) | payer OTHER ==
[~2017-12-25] VITALS: Ht 167.6 cm; Wt 63.7 kg
[~2017-12-25 15:27] MED LIST changes: +CLON0.5T PO; -TRAZ100T29 PO; +ZOLP10TA PO
[2017-12-25 15:35] VITALS: TEMP 36.8; Ht 167.6 cm; Wt 63.7 kg
[2017-12-25] MEDS ORDERED: SODIUM CHLORIDE 0.9% 1000ML 1,000 ML IV STA (16:43)
[2017-12-25] MEDS ORDERED: ONDANSETRON INJ 2 MG/ML 2 ML VIAL IV STA (16:56)
[2017-12-25] MEDS ORDERED: MoRPHine SULFATE 4 MG/ML 1 ML CARP\\VIAL IV STA (16:56)
[2017-12-25] MEDS ORDERED: AMPH15TA2 PO (17:48)
[2017-12-25] MEDS ORDERED: DiphenhydrAMINE HCL 50 MG/ML VIAL IV STA (18:09)
[2017-12-25 18:14] LABS: BASO % 0.3 %; BASO ABS # 0.03 K/uL (0-0.2); EOS % 0.9 %; EOS ABS # 0.09 K/uL (0-0.5); HEMATOCRIT 40.6 % (37-47); HEMOGLOBIN 13.7 g/dL (12.0-16.0); IG# 0.02 K/uL (0.00-0.02); LYMPH ABS # 2.31 K/uL (1.2-3.4); MEAN CELL VOLUME 87.9 fL (80-100); MEAN CORPUSCULAR HEMOGLOBIN 29.7 pg (25-34); MEAN CORPUSCULAR HGB CONC 33.7 g/dl (32-36); MEAN PLATELET VOLUME 10.7 fL (7.4-10.4); MONO % 5.6 %; MONO ABS # 0.54 K/uL (0.11-0.59); NEUT ABS # 6.63 K/uL (1.4-6.5); PLATELET COUNT 225 K/uL (130-400); RED CELL DISTRIBUTION WIDTH CV 12.5 % (11.5-14.5); RED CELL DISTRIBUTION WIDTH SD 40.3 fL (36.4-46.3); WHITE BLOOD COUNT 9.62 K/uL (4.8-10.8)
[2017-12-25 18:39] LABS: ALBUMIN 4.1 gm/dl (3.4-5.0); CALCIUM 8.9 mg/dl (8.5-10.1); CREATININE 0.73 mg/dl (0.60-1.20); TOTAL PROTEIN 7.4 gm/dl (6.4-8.2)
--- NOTE | 2017-12-25 19:17 | DIAGNOSTIC IMAGING REPORT ---
CT SCAN OF THE ABDOMEN AND PELVIS WITHOUT IV CONTRAST CLINICAL HISTORY: Left flank pain. Fever. COMPARISON STUDY: Abdominal CT dated 01/04/2016. TECHNIQUE: CT scan of the abdomen and pelvis is performed from the lung bases to the proximal femora. Images are reviewed in the axial, sagittal, and coronal planes. IV contrast was not administered for this examination. A dose lowering technique was utilized adhering to the principles of ALARA. CT DOSE: 272.26 mGy.cm FINDINGS: Lung bases: The heart is normal in size and without pericardial effusion. The lung bases are clear. Liver: The unenhanced liver is normal in size, contour, and attenuation. There is no intrahepatic biliary ductal dilatation. Calcified granulomas are noted in the hepatic dome. Gallbladder: Surgically absent noting clips in the gallbladder fossa. Spleen: Normal in size and attenuation. Pancreas: Unremarkable. Adrenal glands: Unremarkable. Kidneys: The unenhanced kidneys are normal in size and without hydronephrosis. There are no renal calculi identified. There is no evidence of contour deforming renal mass lesion. Abdominal vasculature: The abdominal aorta is normal in course and caliber. Bowel: There is mild colonic fecal retention. No bowel obstruction is identified. The appendix is well-visualized and normal. Peritoneum: There is no intraperitoneal free air or abdominal ascites. Lymphadenopathy: None. Pelvic viscera: The bladder is normal as visualized. The uterus is surgically absent. No adnexal lesion is seen. Skeletal structures: No lytic or blastic lesions are seen. IMPRESSION: There are no acute infectious or inflammatory findings in the abdomen or pelvis. Electronically signed by: Armando Hemphill M.D. 12/25/2017 7:15 PM Dictated Date/Time: 12/25/2017 7:00 PM
[2017-12-25] MEDS ORDERED: CIPROFLOXACIN 400MG / 200ML D5W IV STA (19:58)
[2017-12-25] MEDS ORDERED: OXYC-90 PO (20:55)
[2017-12-25] MEDS ORDERED: CIPR-255 PO (20:55)
[2017-12-25] MEDS ORDERED: ONDA4TAB10 SL (20:55)
[2017-12-25] MEDS ORDERED: CIPROFLOXACIN 500MG HOME PACK PO ONE (21:00)
[2017-12-25] MEDS ORDERED: OXYCODONE IR HOME PACK PO ONE (21:00)
[2017-12-25] MEDS ORDERED: ONDANSETRON HOME PACK 4MG OD TAB PO ONE (21:00)
[2017-12-25 21:20] VITALS: BP 122/75; PULSE 90; O2SAT 99
--- NOTE | 2017-12-26 01:22 | EMERGENCY ROOM VISIT NOTE ---
History First contact with patient: 16:37 Chief Complaint: FLANK PAIN Stated Complaint: FEVER,LEFT KIDNEY PAIN History of Present Illness The patient is a 27 year old female who presents to the Emergency Room with complaints of left kidney pain, nausea and fever. The patient reports that she had a fever of almost 102 F today at work. The patient denies any preceding urinary symptoms or hematuria. Patient denies . She reports that the pain initially was in the left middle back region, and is now lower and radiating into the left flank. She does report a prior history of hysterectomy. She also reports a history of bilateral ovarian cysts. She denies any chest pain, shortness of breath, neck pain or headache. She rates her discomfort a 5 out of 10. She denies prior history of kidney stones or pyelonephritis. Review of Systems HEENT: Denies dizziness, visual problems, hearing loss, tinnitus. Denies difficulty swallowing or oral lesions. PULMONARY: Denies cough, shortness of breath, sputum production or hemoptysis. CARDIOVASCULAR: Denies chest pain, palpitations, dyspnea on exertion, orthopnea or peripheral edema. GASTROINTESTINAL: Denies diarrhea, constipation, vomiting, or significant abdominal pain. GENITOURINARY: Denies dysuria, frequency, urgency or nocturia. NEUROLOGIC: Denies history of epilepsy, CVA, TIA or chronic headaches. MUSCULOSKELETAL: Denies history of joint tenderness/swelling. SKIN: Denies rashes or lesions. PSYCHIATRIC: Denies history of depression or mental illness. ENDOCRINE: Denies history of diabetes or thyroid disorders. Past Medical/Surgical History Medical Problems: (1) Cholelithiasis Nos (2) Hypothyroidism Nos (3) PROM (premature rupture of membranes) (4) Pyelonephritis Surgical Problems: (1) History of hysterectomy (2) Hx of cholecystectomy Family History Cancer Social History Smoking Status: Never Smoker Alcohol Use: none Drug Use: none Marital Status: single Occupation Status: student Current/Historical Medications Scheduled Amphetamine-Dextroamphetamine (Amphetamine/Dextroampheta), 1 TAB PO BID Ciprofloxacin Hcl (Cipro), 500 MG PO BID Ondasetron Odt (Zofran Odt), 4 MG SL Q6H Scheduled PRN Clonazepam (Klonopin), 0.5 MG PO TID PRN for Anxiety Oxycodone Ir (Roxicodone Ir), 1 TAB PO Q4H PRN for Pain Zolpidem Tartrate (Ambien), 10 MG PO HS PRN for Sleep Physical Exam Vital Signs Date Time Temp Pulse Resp B/P (MAP) Pulse Ox O2 Delivery O2 Flow Rate FiO2 12/25/17 21:20 90 18 122/75 99 12/25/17 17:19 86 18 132/86 100 Room Air 12/25/17 15:35 36.8 95 18 134/87 99 Room Air Physical Exam CONSTITUTIONAL: Healthy and well nourished. Alert and oriented X 3 with positive affect. Patient appears in mild to moderate discomfort. HEENT: Normocephalic, atraumatic. Pupils equal, round and reactive. No scleral icterus or conjunctival injection/pallor. NECK: Full active range of motion without discomfort. No JVD or carotid bruits. RESPIRATORY: Clear to auscultation bilaterally with no wheezing, crackles, rhonchi or stridor. CARDIOVASCULAR: Regular rate and rhythm with no murmurs, rubs or gallops. GASTROINTESTINAL: Bowel sounds present in all quadrants. Abdomen is soft and nontender to palpation. Positive left CVA tenderness. No abdominal rigidity, guarding or rebound. MUSCULOSKELETAL: Full range of motion of all joints without discomfort. INTEGUMENTARY: No rash or other significant dermatologic conditions noted. HEMATOLOGIC: No ecchymosis or petechiae. NEUROLOGIC: No focal neurologic deficits noted. Medical Decision & Procedures ER Provider Diagnostic Interpretation: Noncontrast CT of the abdomen and pelvis does not show any obvious ureteral calculi, nephrolithiasis, bowel obstruction or free air. Radiologist report is as follows: CT SCAN OF THE ABDOMEN AND PELVIS WITHOUT IV CONTRAST CLINICAL HISTORY: Left flank pain. Fever. COMPARISON STUDY: Abdominal CT dated 01/04/2016. TECHNIQUE: CT scan of the abdomen and pelvis is performed from the lung bases to the proximal femora. Images are reviewed in the axial, sagittal, and coronal planes. IV contrast was not administered for this examination. A dose lowering technique was utilized adhering to the principles of ALARA. CT DOSE: 272.26 mGy.cm FINDINGS: Lung bases: The heart is normal in size and without pericardial effusion. The lung bases are clear. Liver: The unenhanced liver is normal in size, contour, and attenuation. There is no intrahepatic biliary ductal dilatation. Calcified granulomas are noted in the hepatic dome. Gallbladder: Surgically absent noting clips in the gallbladder fossa. Spleen: Normal in size and attenuation. Pancreas: Unremarkable. Adrenal glands: Unremarkable. Kidneys: The unenhanced kidneys are normal in size and without hydronephrosis. There are no renal calculi identified. There is no evidence of contour deforming renal mass lesion. Abdominal vasculature: The abdominal aorta is normal in course and caliber. Bowel: There is mild colonic fecal retention. No bowel obstruction is identified. The appendix is well-visualized and normal. Peritoneum: There is no intraperitoneal free air or abdominal ascites. Lymphadenopathy: None. Pelvic viscera: The bladder is normal as visualized. The uterus is surgically absent. No adnexal lesion is seen. Skeletal structures: No lytic or blastic lesions are seen. IMPRESSION: There are no acute infectious or inflammatory findings in the abdomen or pelvis. Laboratory Results 12/25/17 17:49 Red Blood Count 4.62, Mean Corpuscular Volume 87.9, Mean Corpuscular Hemoglobin 29.7, Mean Corpuscular Hemoglobin Concent 33.7, Mean Platelet Volume 10.7, Neutrophils (%) (Auto) 69.0, Lymphocytes (%) (Auto) 24.0, Monocytes (%) (Auto) 5.6, Eosinophils (%) (Auto) 0.9, Basophils (%) (Auto) 0.3, Neutrophils # (Auto) 6.63, Lymphocytes # (Auto) 2.31, Monocytes # (Auto) 0.54, Eosinophils # (Auto) 0.09, Basophils # (Auto) 0.03 12/25/17 17:49 Test 12/25/17 17:20 12/25/17 17:49 Urine Color YELLOW Urine Appearance CLOUDY (CLEAR) Urine pH 5.0 (4.5-7.5) Urine Specific [place] 1.007 (1.000-1.030) Urine Protein 1+ (NEG) Urine Glucose (UA) NEG (NEG) Urine Ketones NEG (NEG) Urine Occult Blood 2+ (NEG) Urine Nitrite NEG (NEG) Urine Bilirubin NEG (NEG) Urine Urobilinogen NEG (NEG) Urine Leukocyte Esterase LARGE (NEG) Urine WBC (Auto) >30 /hpf (0-5) Urine RBC (Auto) 0-4 /hpf (0-4) Urine Hyaline Casts (Auto) 1-5 /lpf (0-5) Urine Epithelial Cells (Auto) 0-5 /lpf (0-5) Urine Bacteria (Auto) 4+ (NEG) White Blood Count 9.62 K/uL (4.8-10.8) Red Blood Count 4.62 M/uL (4.2-5.4) Hemoglobin 13.7 g/dL (12.0-16.0) Hematocrit 40.6 % (37-47) Mean Corpuscular Volume 87.9 fL (80-100) Mean Corpuscular Hemoglobin 29.7 pg (25-34) Mean Corpuscular Hemoglobin Concent 33.7 g/dl (32-36) Platelet Count 225 K/uL (130-400) Mean Platelet Volume 10.7 fL (7.4-10.4) Neutrophils (%) (Auto) 69.0 % Lymphocytes (%) (Auto) 24.0 % Monocytes (%) (Auto) 5.6 % Eosinophils (%) (Auto) 0.9 % Basophils (%) (Auto) 0.3 % Neutrophils # (Auto) 6.63 K/uL (1.4-6.5) Lymphocytes # (Auto) 2.31 K/uL (1.2-3.4) Monocytes # (Auto) 0.54 K/uL (0.11-0.59) Eosinophils # (Auto) 0.09 K/uL (0-0.5) Basophils # (Auto) 0.03 K/uL (0-0.2) RDW Standard Deviation 40.3 fL (36.4-46.3) RDW Coefficient of Variation 12.5 % (11.5-14.5) Immature Granulocyte % (Auto) 0.2 % Immature Granulocyte # (Auto) 0.02 K/uL (0.00-0.02) Anion Gap 9.0 mmol/L (3-11) Est Creatinine Clear Calc Drug Dose 109.3 ml/min Estimated GFR () 131.7 Estimated GFR (Non- 113.7 BUN/Creatinine Ratio 13.8 (10-20) Calcium Level 8.9 mg/dl (8.5-10.1) Total Bilirubin 0.6 mg/dl (0.2-1) Direct Bilirubin 0.1 mg/dl (0-0.2) Aspartate Amino Transf (AST/SGOT) 21 U/L (15-37) Alanine Aminotransferase (ALT/SGPT) 28 U/L (12-78) Alkaline Phosphatase 66 U/L (45-117) Total Protein 7.4 gm/dl (6.4-8.2) Albumin 4.1 gm/dl (3.4-5.0) Globulin 3.3 gm/dl (2.5-4.0) Albumin/Globulin Ratio 1.2 (0.9-2) Lipase 64 U/L (73-393) The above labs were reviewed and were grossly normal. Urinalysis shows a contaminated sample with hematuria. Urine culture is pending. Medications Administered Medications (Trade) Dose Ordered Sig/Robert Route Start Time Stop Time Status Last Admin Dose Admin Sodium Chloride 1,000 ml @ 999 mls/hr Q1H1M STAT IV 12/25/17 16:43 12/25/17 17:43 DC 12/25/17 17:51 999 MLS/HR Morphine Sulfate (MoRPHine SULFATE INJ) 4 mg NOW STAT IV 12/25/17 16:56 12/25/17 16:58 DC 12/25/17 17:52 4 MG Ondansetron HCl (Zofran Inj) 4 mg NOW STAT IV 12/25/17 16:56 12/25/17 16:58 DC 12/25/17 17:51 4 MG Diphenhydramine HCl (Benadryl Inj) 25 mg NOW STAT IV 12/25/17 18:09 12/25/17 18:11 DC 12/25/17 18:17 25 MG Ciprofloxacin/ Dextrose (Cipro / D5W) 400 mg NOW STAT IV 12/25/17 19:58 12/25/17 19:59 DC 12/25/17 20:01 400 MG Ciprofloxacin (Cipro 500MG Home Pack) 1 homepack UD ONCE PO 12/25/17 21:00 12/25/17 21:01 DC 12/25/17 21:09 1 HOMEPACK Ondansetron HCl (ZOFRAN ODT 4MG Home Pack) 1 homepack UD ONCE PO 12/25/17 21:00 12/25/17 21:01 DC 12/25/17 21:09 1 HOMEPACK Oxycodone HCl (Roxicodone Immediate Rel 5MG Home Pack) 1 homepack UD ONCE PO 12/25/17 21:00 12/25/17 21:01 DC 12/25/17 21:09 1 HOMEPACK ED Course Patient history and physical exam were performed. Nurse's notes were reviewed. Vital signs were reviewed. The patient is currently afebrile. 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 IV access was established, and labs were drawn. The patient was hydrated with a liter normal saline, and administered a morphine and Zofran for pain and nausea. The patient did develop a rash near her IV site, and reported feeling itchy all over. The patient was administered IV Benadryl as well with complete resolution of symptoms. Labs were reviewed and grossly unremarkable. Urinalysis shows a contaminated sample with hematuria. Noncontrast CT of the abdomen and pelvis did not show any evidence for ureteral calculi or hydronephrosis. Because the patient reports a fever this afternoon, and has clinical CVA tenderness, I felt it prudent to treat the patient for possible pyelonephritis. The patient was administered Cipro 400 mg IV infusion. The patient does have a history of allergy to cephalosporins. The patient did feel well enough to go home. She will be treated with Cipro antibiotics. She was provided home packs and prescriptions for Cipro, OxyIR and Zofran ODT. She was instructed to follow -up with her PCP for recheck within the next 2-3 days. Return to the emergency department over the weekend for any progressively worsening symptoms. The patient was happy with plan of care, and voiced understanding of all discharge instructions. Medical Decision Patient presents to the emergency department with complaint of left back and flank pain. Her CT scan does not show any ureteral calculi. She does have a positive CVA tenderness and fever that is highly suggestive of pyelonephritis, although she has had no other recent urinary symptoms. Her abdominal exam is benign, therefore I do not suspect diverticulitis, peritonitis, bowel obstruction, appendicitis or other acute findings. The patient is status post hysterectomy. Other intrapelvic etiologies were considered but deemed less likely. [place] Drug Monitoring Program Search Results: patient reviewed within database, no issues identified Medication Reconcilliation Current Medication List: was personally reviewed by me Blood Pressure Screening Patient's blood pressure: Normal blood pressure Impression Primary Impression: Pyelonephritis Departure Information Dispostion Home / Self-Care Condition GOOD Prescriptions Oxycodone Ir (Roxicodone Ir) 5 Mg Tab 1 TAB PO Q4H Y for Pain, #15 TAB For Initial Treatment Prov: Samuel Garcia PA 12/25/17 Ondasetron Odt (ZOFRAN ODT) 4 Mg Tab 4 MG SL Q6H for Nausea, #10 TAB Prov: Samuel Garcia PA 12/25/17 Ciprofloxacin Hcl (CIPRO) 500 Mg Tab 500 MG PO BID for 10 Days, #20 TAB Prov: Samuel Garcia PA 12/25/17 Referrals Funmi Odonnell M.D. (PCP) Forms HOME CARE DOCUMENTATION FORM, IMPORTANT VISIT INFORMATION Patient Instructions Pyelonephritis - [facility], [facility] Additional Instructions Read pyelonephritis handout. Take Cipro antibiotics as prescribed. Zofran ODT as needed for nausea. Tylenol 1000 mg every 6-8 hours. OxyIR if needed for worse pain. Do not drink alcohol or drive while taking OxyIR. Follow-up with your PCP in 2-3 days for recheck. Return to the emergency department over the weekend for any progressively worsening symptoms.
== END 2017-12-25 21:22 | disposition home or self-care (01) ==
LOC: C.EDB 15:28 → C.EDA 21:22
DX: N12 Tubulo-interstitial nephritis, not specified as acute or chronic (principal); E03.9 Hypothyroidism, unspecified; K80.20 Calculus of gallbladder without cholecystitis without obstruction